=== PATIENT | female | born 1970 ===

== ENCOUNTER → 2019-07-01 | Outpatient (CLI) | payer SELFPAY ==
[~2019-07-01] VITALS: Ht 147 cm; Wt 59.0 kg
[~2019-07-01] MED LIST: NS IV 500 ML 500 ML ONE
[2019-07-01 12:00] LABS: ABSOLUTE RETIC # 57 10e9/L (24-90); BASOPHILS % (AUTO) 1 % (0-10); EOSINOPHILS # (AUTO) 0.1 10^3/uL (0.0-0.3); EOSINOPHILS % (AUTO) 1 % (0-10); HEMATOCRIT 23 % (35-52); LYMPHOCYTES # (AUTO) 1.4 X 10^3 (1.0-4.0); LYMPHOCYTES % (AUTO) 31 % (12-44); MEAN CORPUSCULAR HEMOGLOBIN 18 PG (25-34); MEAN CORPUSCULAR HGB CONC 28 G/DL (32-36); MEAN CORPUSCULAR VOLUME 63 FL (80-99); MEAN PLATELET VOLUME 9.2 FL (7.4-10.4); MONOCYTES # (AUTO) 0.5 X 10^3 (0.0-1.0); MONOCYTES % (AUTO) 10 % (0-12); NEUTROPHILS # (AUTO) 2.6 X 10^3 (1.8-7.8); NEUTROPHILS % (AUTO) 57 % (42-75); PLATELET COUNT 606 10^3/uL (130-400); RED CELL DISTRIBUTION WIDTH 18.3 % (10.0-14.5); RETICULOCYTE % 1.56 % (0.50-2.40); WHITE BLOOD COUNT 4.5 10^3/uL (4.3-11.0)
[2019-07-01 12:01] LABS: HEMOGLOBIN 6.4 G/DL (11.5-16.0)
[2019-07-01 12:05] VITALS: BP 124/71
[2019-07-01 12:49] VITALS: BP 117/65
[2019-07-01 13:00] LABS: NEUTROPHILS % (MANUAL) 61 %
[2019-07-01 13:01] LABS: EOSINOPHILS % (MANUAL) 1 %; HYPOCHROMASIA MODERATE; LYMPHOCYTES % (MANUAL) 23 %; MICROCYTOSIS SLIGHT; MONOCYTES % (MANUAL) 15 %; TARGET CELLS SLIGHT
[2019-07-01 13:02] LABS: ANISOCYTOSIS SLIGHT; ELLIPT/OVALOCYTES SLIGHT; POIKILOCYTOSIS SLIGHT; SPHEROCYTES SLIGHT
[2019-07-01 13:04] VITALS: BP 98/59
[2019-07-01 15:06] VITALS: BP 113/66
[2019-07-01 15:26] LABS: HEMOGLOBIN 7.5 G/DL (11.5-16.0)
[2019-07-01 15:45] VITALS: BP_SYST 113; BP_SYST 124; BP_DIAS 66; BP_DIAS 71
--- NOTE | 2019-07-01 15:45 | NUR ---
PT DISCHARGED TO HOME, NO S/S OF REACTION, RESPIRATIONS, REGULAR, UNLABORED, DENIES PAIN OR C/O. PT VERBALIZES UNDERSTANDING OF POST BLOOD TRANSFUSION INSTRUCTIONS, LEFT AMBULATORY, UNACCOMPANIED.
== END ==
LOC: SDC 11:30
PROVIDERS: ATTEND Family Medicine
DX: D50.0 Iron deficiency anemia secondary to blood loss (chronic) (principal); N92.0 Excessive and frequent menstruation with regular cycle
CPT/HCPCS: 36415; 36430; 82728; 83540; 85007; 85014; 85018; 85027; 85045; 86850; 86900; 86901; 86920